=== PATIENT | female | born 1955 | race American Indian/Alaskan Native ===

== ENCOUNTER 2019-06-27 14:15 | Emergency (ER) | payer BC ==
[2019-06-27] MEDS ORDERED: SODIUM CHLORIDE 0.9% 1000 ML 1,000 ML IV ONE (14:46)
[2019-06-27] MEDS ORDERED: ASPIRIN 325 MG TAB PO ONE (14:46)
--- NOTE | 2019-06-27 14:46 | Event Note ---
ED Screening Note Date of service: 06/27/19 Time: 14:40 ED Screening Note: Pt reports right sided cp since wednesday into right arm. reports numbness and tingling in right arm as well. +heart cath 9 weeks ago with stent placement. She has 6 stents total. She states she also accidentally fell wednesday, landed on both hands and injured right ankle and she not sure if the fall could be causing her pain. Giving her hx of CAD she state her symptoms frightened her. No SOB, no nausea or vomiting. no head injury. This initial assessment/diagnostic orders/clinical plan/treatment(s) is/are subject to change based on patients health status, clinical progression and re- assessment by fellow clinical providers in the ED. Further treatment and workup at subsequent clinical providers discretion. Patient/guardian urged not to elope from the ED as their condition may be serious if not clinically assessed and managed. Initial orders include: cardiac work up cervical spine xray shoulder xray ankle xray
[2019-06-27 15:16] LABS: Basophils # (Auto) 0.1 K/mm3 (0.0-0.1); Basophils % (Auto) 0.9 % (0.0-1.8); Eosinophils # (Auto) 0.5 K/mm3 (0.0-0.4); Eosinophils % (Auto) 7.7 % (0.0-4.3); Hematocrit 39.6 % (30.3-42.9); Hemoglobin 13.2 gm/dl (10.1-14.3); Lymphocytes # (Auto) 2.1 K/mm3 (1.2-5.4); Lymphocytes % (Auto) 31.6 % (13.4-35.0); Mean Corpuscular HGB Conc 33 % (30-34); Mean Corpuscular Volume 97 fl (79-97); Monocytes # (Auto) 0.4 K/mm3 (0.0-0.8); Monocytes % (Auto) 5.5 % (0.0-7.3); Platelet Count 240 K/mm3 (140-440); Red Blood Count 4.07 M/mm3 (3.65-5.03); Red Cell Distribution Width 13.8 % (13.2-15.2)
[2019-06-27 15:38] LABS: Alanine Aminotransferase 15 units/L (7-56); Albumin 4.3 g/dL (3.9-5); BUN/Creatinine Ratio 14; Blood Urea Nitrogen 14 mg/dL (7-17); Calcium 9.6 mg/dL (8.4-10.2); Hemolysis Index 26
--- NOTE | 2019-06-27 15:55 | XRay Report ---
RIGHT SHOULDER 3 VIEW(S) INDICATION / CLINICAL INFORMATION: MAIN: Fall, shoulder pain Pt c/o fall on 06/23/19. Pt reports falling off of step, landed on both hand s and right knee. Pt reports right ankle pain RUE numbness and chest pain today. Pt AA&Ox4, ambulator y with steady gait. COMPARISON: None available. FINDINGS: BONES / JOINT(S): No acute fracture or subluxation. Moderate degenerative arthrosis of right AC and g lenohumeral joints. SOFT TISSUES: No significant abnormality. ADDITIONAL FINDINGS: None. Signer Name: Surya Piña MD Signed: 06/27/2019 3:50 PM Workstation Name: [id number]
--- NOTE | 2019-06-27 15:56 | XRay Report ---
CHEST 2 VIEWS INDICATION: Chest Pain. COMPARISON: None FINDINGS: Support devices: None. Heart: Within normal limits. Lungs/pleura: No acute air space or interstitial disease. No pneumothorax. Additional findings: None. IMPRESSION: No acute findings. Signer Name: Lenin Carnes Jr, MD Signed: 06/27/2019 3:52 PM Workstation Name: [id number]
--- NOTE | 2019-06-27 16:18 | XRay Report ---
XR spine cervical 2-3V INDICATION / CLINICAL INFORMATION: Right upper extremity numbness after fall. COMPARISON: None available. FINDINGS: BONES/JOINT(S): No vertebral fracture. Previous ACDF at C3-4 with solid-appearing bone fusion. Degene rative disc disease at C4-5, C5-6, and C6-7 with disc height loss and reactive endplate osteophyte fo rmation. Overall normal alignment. SOFT TISSUES: No significant abnormality. ADDITIONAL FINDINGS: None. Signer Name: Dany Moran MD Signed: 06/27/2019 4:14 PM Workstation Name: [id number]
[2019-06-27 18:37] VITALS: BP 118/62
[2019-06-27] MEDS ORDERED: traMADol 50 MG TAB PO ONE (18:44)
--- NOTE | 2019-06-27 19:22 | XRay Report ---
Right ankle-previous INDICATION: pain, s/p fall. COMPARISON: None. IMPRESSION: Mild soft tissue swelling about the ankle with no acute fracture identified. Ankle morti se is symmetric and preserved. Bulky enthesopathic change at the calcaneal tuberosity and mild degene rative changes in the hindfoot/midfoot. Signer Name: Moisés Hartley MD Signed: 06/27/2019 7:18 PM Workstation Name: [id number]
--- NOTE | 2019-06-27 19:48 | Emergency Department Report ---
ED Fall HPI - General Chief Complaint: Chest Pain Stated Complaint: CHEAT PAIN/ARM NUMBNESS Time Seen by Provider: 06/27/19 14:39 Source: patient Mode of arrival: Ambulatory Limitations: No Limitations - History of Present Illness Initial Comments: 64-year-old female with a past medical history of CAD with 6 cardiac stent placement, asthma, hypertension, C3-C4 cervical fusion resents to the hospital complaining of pain after a fall. Patient had her most recent heart cath with stent placement not weeks ago. She called her [facility] office about her current symptoms and was advised to come to the ER for evaluation. 4 days ago patient fell forward landing on her right knee and using both her hands to break her fall. Last night she developed pain in her right upper chest, right trapezius, right shoulder, right ankle, and with numbness in her right arm. Symptoms worsened this morning. Pain is numbness or intermittent and worse with palpation and movement. She denies head injury, syncope, or weakness. Pain to right upper chest is described as aching that is worse with palpation and movement as well. She denies shortness of breath, nausea, vomiting, or diaphoresis. - Related Data Previous Rx's Medication Instructions Recorded Last Taken Type traMADol [Ultram 50 MG tab] 50 mg PO Q6HR PRN #20 tablet 06/27/19 Unknown Rx Allergies Allergy/AdvReac Type Severity Reaction Status Date / Time Sulfa (Sulfonamide Allergy Itching Verified 06/27/19 14:18 Antibiotics) ED Review of Systems ROS: Stated complaint: CHEAT PAIN/ARM NUMBNESS Other details as noted in HPI Comment: All other systems reviewed and negative ED Past Medical Hx - Past Medical History Previous Medical History?: Yes Hx Hypertension: Yes Hx Asthma: Yes Additional medical history: bronchitis - Surgical History Past Surgical History?: Yes Hx Coronary Stent: Yes (6 stents) Additional Surgical History: c3 and c4 replaced and srews placed, fusion - Social History Smoking Status: Current Every Day Smoker Substance Use Type: None - Medications Home Medications: Home Medications Medication Instructions Recorded Confirmed Last Taken Type traMADol [Ultram 50 MG tab] 50 mg PO Q6HR PRN #20 tablet 06/27/19 Unknown Rx ED Physical Exam - General Limitations: No Limitations - Other Other exam information: General: No acute distress Head: Atraumatic Eyes: normal appearance ENT: Moist mucous membranes Neck: Normal appearance, no midline tenderness and right-sided trapezius muscle tenderness Chest: Clear to auscultation bilaterally. Reproducible right sided pectoralis muscle CV: Regular rate and rhythm Abdomen: Soft, normal bowel sounds, nontender, nondistended, no rebound or guarding Back: Normal inspection Extremity: Normal inspection infection, no medial or later malleoli tenderness, ant proximal foot tenderness. able to bear weight, mild swelling. FROM of ankle. Limited abduction movement of right shoulder secondary to pain no deformity. Neuro: Alert O x 3, no facial asymmetry, speech clear, mild decreased sensation to touch in the right hand compared to the left. Biceps 5 hand stoneworker equal bilaterally. 5/5 leg strength. Leg sensation equal bilaterally. Psych: Appropriate behavior Skin: No rash ED Course Vital Signs 06/27/19 06/27/19 06/27/19 14:22 14:25 18:27 Temperature 98 F Pulse Rate 70 Respiratory 18 Rate Blood Pressure 135/77 Blood Pressure [Left] O2 Sat by Pulse 97 Oximetry 06/27/19 06/27/19 18:36 19:08 Temperature Pulse Rate 58 L Respiratory 12 16 Rate Blood Pressure Blood Pressure 118/62 [Left] O2 Sat by Pulse 97 Oximetry - Consultations Consultation #1: 06/27/19 19:50 Case discussed with [facility] is Dr. Monique. Patient will be discharged home with outpatient follow-up ED Medical Decision Making - Lab Data Result diagrams: 06/27/19 15:05 06/27/19 08:56 Lab Results 06/27/19 06/27/19 Range/Units 08:56 15:05 WBC 6.7 (4.5-11.0) K/mm3 RBC 4.07 (3.65-5.03) M/mm3 Hgb 13.2 (10.1-14.3) gm/dl Hct 39.6 (30.3-42.9) % MCV 97 (79-97) fl MCH 32 (28-32) pg MCHC 33 (30-34) % RDW 13.8 (13.2-15.2) % Plt Count 240 (140-440) K/mm3 Lymph % (Auto) 31.6 (13.4-35.0) % [place] % (Auto) 5.5 (0.0-7.3) % Eos % (Auto) 7.7 H (0.0-4.3) % Baso % (Auto) 0.9 (0.0-1.8) % Lymph # 2.1 (1.2-5.4) K/mm3 [place] # 0.4 (0.0-0.8) K/mm3 Eos # 0.5 H (0.0-0.4) K/mm3 Baso # 0.1 (0.0-0.1) K/mm3 Seg Neutrophils % 54.3 (40.0-70.0) % Seg Neutrophils # 3.6 (1.8-7.7) K/mm3 Sodium 139 (137-145) mmol/L Potassium 3.6 (3.6-5.0) mmol/L Chloride 103.1 (98-107) mmol/L Carbon Dioxide 25 (22-30) mmol/L Anion Gap 15 mmol/L BUN 14 (7-17) mg/dL Creatinine 1.0 (0.7-1.2) mg/dL Estimated GFR 56 ml/min BUN/Creatinine Ratio 14 % Glucose 138 H (65-100) mg/dL Calcium 9.6 (8.4-10.2) mg/dL Total Bilirubin 0.90 (0.1-1.2) mg/dL AST 15 (5-40) units/L ALT 15 (7-56) units/L Alkaline Phosphatase 75 (35-129) units/L Troponin T < 0.010 (0.00-0.029) ng/mL Total Protein 7.6 (6.3-8.2) g/dL Albumin 4.3 (3.9-5) g/dL Albumin/Globulin Ratio 1.3 % - EKG Data -: EKG Interpreted by Co EKG shows normal: sinus rhythm, ST-T waves (lat t inv) - EKG Data When compared to previous EKG there are: previous EKG unavailable - Radiology Data Radiology results: report reviewed cxr, xr r ankle, cpine xray, xr r shoulder: no acute findings. see report for incidental findings - Medical Decision Making Low suspicion for CAD. Patient is muscular skeletal reproducible pain after a fall. Pain is also right-sided as a pulsatile left-sided. Patient does not have an associated symptoms. Initial EKG shows lateral T-wave inversions. Troponin negative. Case discussed with cardiology. Patient is discharged home pain medications for symptomatic treatment. - Differential Diagnosis fracture, contusion, sprain Critical Care Time: No Critical care attestation.: If time is entered above; I have spent that time in minutes in the direct care of this critically ill patient, excluding procedure time. ED Disposition Clinical Impression: Strain of right trapezius muscle, Strain of right pectoralis muscle, Right ankle sprain, Cervical radiculopathy, Hx of fusion of cervical spine, Hx of coronary artery disease, Fall Disposition: TO HOME OR SELFCARE Is pt being admited?: No Does the pt Need Aspirin: No Condition: Stable Instructions: Muscle Strain (ED), Cervical Radiculopathy (ED), Thoracic Pain (ED), Ankle Sprain (ED) Additional Instructions: Take the medication as prescribed. Follow-up with your doctor or doctor/clinic provided. Return if symptoms worsen as indicated by your discharge instructions. Prescriptions: traMADol [Ultram 50 MG tab] 50 mg PO Q6HR PRN #20 tablet PRN Reason: Pain Referrals: FEI GARCIA MD [Staff Physician] - 3-5 Days your, primary care doctor [Other] - 3-5 Days Time of Disposition: 20:09
== END 2019-06-27 20:20 | disposition home or self-care (01) ==
LOC: ED 14:15
DX: S16.1XXA Strain of muscle, fascia and tendon at neck level, initial encounter (principal); S96.911A Strain of unspecified muscle and tendon at ankle and foot level, right foot, initial encounter; I10 Essential (primary) hypertension; J45.909 Unspecified asthma, uncomplicated; F17.200 Nicotine dependence, unspecified, uncomplicated; I25.10 Atherosclerotic heart disease of native coronary artery without angina pectoris; Z95.1 Presence of aortocoronary bypass graft; Z79.899 Other long term (current) drug therapy; Z88.2 Allergy status to sulfonamides; W01.198A Fall on same level from slipping, tripping and stumbling with subsequent striking against other object, initial encounter; Y93.89 Activity, other specified; Y92.89 Other specified places as the place of occurrence of the external cause; Y99.8 Other external cause status
CPT/HCPCS: 36415; 71046; 72040; 80053; 84484; 85025; 93005; 93010; 99284